=== PATIENT | male | born 1990 | race Caucasian/White ===

== ENCOUNTER 2017-04-11 09:35 | Emergency (ER) | payer OTHER ==
[~2017-04-11] VITALS: Ht 177.8 cm; Wt 104.5 kg
[~2017-04-11 09:35] MED LIST: CLIN-78 PO; HYDR-4003 PO; NPR500T PO; ONDA4TAB9 PO; OXYC1TAB24 PO; PENI500T PO; PROC5TAB50 PO
[2017-04-11 09:38] VITALS: BP 101/64; PULSE 83; RESP 15; O2SAT 99
--- NOTE | 2017-04-11 09:43 | ED.REPORT ---
HPI-Rash / Abscess Date of Service Apr 11, 2017 ED Provider: Dr. Horacio England The patient is a 26 year old male who presents to the ED complaining of redness and swelling to his right knee increasing in severity since yesterday. The redness began as a small spot and has now at least doubled in size and is spreading up his thigh. Associated symptoms include subjective fever and chills. Pt reports that he had some bug bites on his left knee that he scratched and became infected. Nursing Notes Stated Complaint: RT KNEE PAIN Chief Complaint: Extremity Trauma Nursing Notes Reviewed: Yes (Moe Delo not reconciled) Allergies: Coded Allergies: promethazine (Verified Allergy, Intermediate, makes nausea worse, 07/19/16) Sulfa (Sulfonamide Antibiotics) (Verified Allergy, Mild, RASH, 07/19/16) Penicillins (Verified Allergy, Unknown, Nausea,Vomiting, 07/19/16) Uncoded Allergies: TEGADERM (Allergy, Intermediate, RASH, 11/09/15) Scheduled Clindamycin (Clindamycin) 300 Mg Capsule 300 MG PO QID Clindamycin (Clindamycin) 300 Mg Capsule 300 MG PO QID Lactobacillus Acidophilus (Probiotic) 1 Each Capsule 1 EACH PO DAILY Penicillin V Potassium (Penicillin V Potassium) 500 Mg Tablet 500 MG PO TID Prochlorperazine Maleate (Compazine) 5 Mg Tablet 5 MG PO TID Scheduled PRN Hydrocodone-Acetaminophen 5-325 mg (Hydrocodone-Acetaminophen 5-325 mg) 1 Each Tablet 1-2 TABLET PO Q4H PRN PRN For Pain Hydrocodone-Acetaminophen 5-325 mg (Hydrocodone-Acetaminophen 5-325 mg) 1 Each Tablet 1 TABLET PO Q4H PRN PRN For Pain Naproxen (Naproxen) 500 Mg Tab 500 MG PO BID PRN PRN For Pain Ondansetron ODT (Zofran ODT) 4 Mg Tablet 4 MG PO Q4H PRN PRN For Nausea Ondansetron ODT (Zofran ODT) 4 Mg Tablet 4 MG PO Q4H PRN PRN For Nausea oxyCODONE-Acetaminophen 5-325 mg (oxyCODONE-Acetaminophen 5-325 mg) 1 Each Tablet 1 TAB PO Q6H PRN PRN For Pain General Time Seen by MD: 09:42 Chief Complaint Red area Hx Obtained From: Patient Arrived By: Walk-in Onset Occurred: Yesterday Symptom Duration: Since onset Location: : Lower extremity Severity: Current: No pain currently Recent Healthcare: No recent doctor visit, No recent hospitalization Similar Sx Previous: No Past Medical History Past Medical History Chronic abd pain Multiple dental abscesses Past Surgical History open heart surgery age 3 and ear tubes Reports: Tonsillectomy Family History noncontributory Smoking History Never Smoker Social History chesw 2 cans a week for 9 years Alcohol Use: "Social" Drug Use: Denies drug use, THC Other Social History: , Local resident Occupation work at [employer] 07/18/2016 Ambulatory Status Independent Review of Systems Constitutional: Reports: Chills, Fever Respiratory: Denies: Shortness of breath Cardiovascular: Denies: Chest pain GI: Denies: Abdominal pain, Diarrhea, Nausea, Vomiting Skin: Reports Swelling Complete sys rev & neg: except as marked. Physical Exam Initial Vital Signs Vital Signs (First) Date Time Temp Pulse Resp B/P Pulse Ox O2 Delivery O2 Flow Rate FiO2 04/11/17 09:38 36.4 83 15 101/64 99 Initial VS: Reviewed, Vital signs normal General/Constitutional: Awake, Alert, Cooperative Rash / Lesion Notes: 4 by 3 small area of cellulitis near skin break down from bug bites 4 cm of ascending lymphangitis Rash / Lesion Location: Positive: Knee R Head / Eyes: Atraumatic, Normocephalic, PERRL Upper Extremity / MS: Atraumatic, Full range of motion, No deformity Lower Extremity / Pelvis / MS: Atraumatic, Full range of motion, No deformity Neurologic: Oriented X3, Speech NL, No motor deficits Neck: Atraumatic, Supple Wrist / Hand: Atraumatic, Full range of motion, No deformity Ankle / Foot: Atraumatic, Full range of motion, No deformity Re-Eval/Medical Decision Med Decision/Clinical Course This is a 26-year-old male who had a bug bite at his knee that he scratched, breaking the skin slightly, and over the past 24 hours developed initial area of redness and pain, now with a streak extending up the inner thigh about 4-5 cm. He is up-to-date on tetanus, has no other major medical issues. He is not a diabetic and has no other major comorbidities. On exam there is a small area of cellulitis just inferior to the knee, and an area of ascending lymphangitis just beginning minutes only about 4-5 cm in length. He has no signs of an abscess or anything that be amenable to incision and drainage. No findings of a septic joint. The leg is neurovascularly intact. The patient's allergy profile, is being given clindamycin for staph and strep coverage. He is also being given probiotics. Area of infection was delineated with a skin pen. Return and routine precautions reviewed. Patient is discharged in good condition. Source of Hx: Old records Differential Diagnosis: Positive: Cellulitis, Negative: Allergic reaction, Bartholin's abscess, Gangrene, Henoch-Schonlein purpura, Herpes zoster, Herpes zoster/simplex, Hidradenitis suppurativa, Idiopathic thromb purpura, Kawasaki's disease, Perirectal abscess, Shingles, herpes zoster Counseled Regarding: Diagnosis, Lab results, Need for follow-up, When/why to return to ED Discharge & Departure Impression: Primary Impression: Cellulitis Site of cellulitis: extremity Site of cellulitis of extremity: lower extremity Laterality: right Qualified Code: L03.115 - Cellulitis of right lower limb Additional Impression: Ascending lymphangitis Disposition: Home Discharge Condition All VS Reviewed: Yes Condition: Stable Additional Instructions: 1. This is a skin infection called cellulitis. 2. You received an injection of the antibiotic clindamycin. Continue this antibiotic-next dose at around 3 or 4 PM, then again at bedtime and starting tomorrow take 4 times a day for 7 days. 3. It usually takes around 24-36 hours for the antibiotics to really start to work and free to start to see improvement. There may be some mild worsening in the interim, but by Wednesday symptoms should be clearly improving. If there is marked worsening, if symptoms are not improving, or if you have new or worsening symptoms-return to the emergency department. 4. Take Ibuprofen 400-800 mg up to 3 times a day if needed for pain or soreness. 5. Additionally, I recommended taking a "probiotics" while you are on the myosin, and then for an additional 2 weeks afterwards. The N Roland Castellonby infection in either leg, but they also killed a normal healthy bacteria that live and urine testing. Probiotics replace those intestinal bacteria, and help prevent him from getting a diarrheal illness following antibiotics. Referrals: KAIA BAKER DO (PCP) Scribe Attestation Portion of this note were transcribed by Kaycee Stanton. I, Dr. England, personally performed the history, physical exam, and medical decision-making: I reviewed and confirmed the accuracy for the information in the transcribed note. Signed by: radha Li, 04/11/17 1200 copies to: KAIA BAKER Matthew F MD Apr 11, 2017 09:43 Kaycee Stanton Apr 11, 2017 09:50
[2017-04-11] MEDS ORDERED: Clindamycin 150 mg/mL 2 mL Inj IM ONE (09:50)
[2017-04-11] MEDS ORDERED: LACT1CAP65 PO (09:54)
[2017-04-11] MEDS ORDERED: CLIN-78 PO (09:54)
[2017-04-11 10:39] VITALS: BP 100/46; PULSE 75; RESP 16; O2SAT 96
== END 2017-04-11 10:30 | disposition home or self-care (01) ==
LOC: SED 09:35
DX: L03.115 Cellulitis of right lower limb (principal); W57.XXXA Bitten or stung by nonvenomous insect and other nonvenomous arthropods, initial encounter; Y92.9 Unspecified place or not applicable; Y93.89 Activity, other specified; Y99.8 Other external cause status; Z88.0 Allergy status to penicillin; Z88.2 Allergy status to sulfonamides; Z88.8 Allergy status to other drugs, medicaments and biological substances
CPT/HCPCS: 96372; 99283; J3490